=== PATIENT | female | born 1930 | race Hispanic/Latino ===

== ENCOUNTER 2017-08-10 21:42 | Emergency (ER) | payer SELFPAY ==
[~2017-08-10 21:42] MED LIST: Sodium Chloride 0.9% 100 ML BAG ONE
[2017-08-10 22:11] LABS: #Basophils 0.1 thou/uL (0.0-0.2); #Eosinphils 0.4 thou/uL (0.0-0.7); #Lymphocytes 2.5 thou/uL (1.20-3.40); #Monocytes 0.6 thou/uL (0.11-0.59); #Neutrophils 3.3 thou/uL (1.40-6.50); %Basophils 2.2 % (0.0-1.0); %Eosinophils 5.6 % (0.0-10.0); %Lymphocytes 35.9 % (21.0-51.0); %Monocytes 8.8 % (0.0-10.0); %Neutrophils 47.6 % (42.0-75.0); Hemoglobin 14.6 g/dL (12.0-16.0); Mean Corpuscular HGB CONC 31.7 g/dL (32.0-36.0); Mean Corpuscular Hemoglobin 31.3 pg (27.0-31.0); Mean Corpuscular Volume 98.8 fl (81.0-99.0); Mean Platelet Volume 9.4 fL (7.4-10.4); Platelet Count 287 thou/uL (130-400); RBC Distribution Width 11.7 % (11.5-14.5); Red Blood Cell (RBC) Count 4.67 mill/uL (4.20-5.40); White Blood Cell (WBC) Count 6.9 thou/uL (4.8-10.8)
[2017-08-10 22:14] LABS: PTT 27.6 SEC (22.9-36.1); Prothrombin Time 12.8 SEC (12.0-14.7)
[2017-08-10 22:27] LABS: ALT (SGPT) 19 U/L (8-55); AST (SGOT) 21 U/L (5-34); Albumin 3.9 g/dL (3.4-4.8); Alkaline Phosphatase 106 U/L (40-150); Anion Gap 20 mmol/L (10-20); BUN (Urea Nitrogen) 14 mg/dL (9.8-20.1); Bilirubin, Total 0.3 mg/dL (0.2-1.2); Calc. Creatinine Clearance 0 mL/min (70-130); Calcium 9.1 mg/dL (7.8-10.44); Carbon Dioxide 24 mmol/L (23-31); Chloride 102 mmol/L (98-107); Estimated GFR-MDRD 64; Globulin 3.7 g/dL (2.4-3.5); Glucose 223 mg/dL (83-110); Magnesium 1.9 mg/dL (1.6-2.6); Potassium 4.5 mmol/L (3.5-5.1); Protein, Total 7.6 g/dL (6.0-8.3); Sodium 141 mmol/L (136-145)
--- NOTE | 2017-08-10 22:27 | RAD ---
PORTABLE CHEST 08/10/17 PROVIDED CLINICAL HISTORY: Shortness of breath. FINDINGS: Comparison 07/28/17. The cardiac and mediastinal silhouette unchanged in appearance. Vascular calcification involves the a ortic arch, No focal consolidation, pleural fluid, or pneumothorax apparent. IMPRESSION: No evidence for an acute cardiopulmonary process. POS: [facility]
[2017-08-10 22:29] LABS: CKMB 1.4 ng/mL (0-6.6); Troponin I Less than 0.010 ng/mL (< 0.028)
[2017-08-10] MEDS ORDERED: cefTRIAXone\\ROCEPHIN 2 GM VIAL ONE (22:37)
[2017-08-10] MEDS ORDERED: Dexamethasone 10 MG/ML VIAL ONE (22:37)
[2017-08-10] MEDS ORDERED: methylPREDNISolone Sod Succ/PF 125 MG/2 ML VIAL ONE (22:37)
[2017-08-10] MEDS ORDERED: Azithromycin 250 MG TAB ONE (22:37)
[2017-08-10] MEDS ORDERED: Benzonatate 100 MG CAP ONE (22:37)
[2017-08-10 22:47] LABS: Bilirubin Negative (Negative); Blood, Urine Small (Negative); Clarity Clear (Clear); Glucose, Urine (Dipstick) 500 mg/dL (Negative); Leukocyte Negative (Negative); Nitrite Negative (Negative); Protein, Urine (Dipstick) 100 mg/dL (Neg-Trace); Specific Gravity, Urine 1.025 (1.005-1.030)
[2017-08-10 22:47] LABS: CK (CPK) 46 U/L (29-168)
[2017-08-10 22:54] LABS: Bacteria/HPF None Seen HPF (None Seen); RBC/HPF 0-3 HPF (0-3); Squamous Epithelial 0-3 HPF (0-3); WBC/HPF 0-3 HPF (0-3)
== END 2017-08-10 23:34 | disposition home or self-care (01) ==
LOC: MADERS 21:42
DX: J20.9 Acute bronchitis, unspecified (principal); I10 Essential (primary) hypertension; E10.9 Type 1 diabetes mellitus without complications; E78.5 Hyperlipidemia, unspecified; Z79.84 Long term (current) use of oral hypoglycemic drugs; Z79.899 Other long term (current) drug therapy
CPT/HCPCS: 51701; 71010; 80053; 81001; 82553; 83735; 83880; 84484; 85025; 85610; 85730; 87081; 87086; 87430; 93005; 94640; 94760; 96365; 96375; A4353; J0696; J1100; J2930; J7050; J7620

== ENCOUNTER 2017-11-07 19:39 | Emergency (ER) | payer SELFPAY ==
[2017-11-07] MEDS ORDERED: MORPHINE 10 MG/ML SYRINGE ONE (19:50)
[2017-11-07] MEDS ORDERED: CEFAZOLIN 1 GM VIAL ONE (20:32)
--- NOTE | 2017-11-07 20:37 | RAD ---
THREE VIEWS LEFT WRIST: 11/07/17 INDICATION: Fall with left wrist pain. FINDINGS: There is a comminuted intra-articular distal radius fracture with dorsal radial displacement of the d istal fracture fragment one half shaft width. There is additional comminuted fracture involving the d istal ulnar metaphyseal region and ulnar styloid process base. No additional fracture is evident. The re is soft tissue swelling seen surrounding the fracture site. 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 IMPRESSION: Comminuted distal left wrist fracture. POS: [facility]
== END 2017-11-07 21:40 | disposition short-term general hospital (02) ==
LOC: MADERS 19:39
DX: S52.572B Other intraarticular fracture of lower end of left radius, initial encounter for open fracture type I or II (principal); S52.612B Displaced fracture of left ulna styloid process, initial encounter for open fracture type I or II; I10 Essential (primary) hypertension; E11.9 Type 2 diabetes mellitus without complications; E78.5 Hyperlipidemia, unspecified; F32.9 Major depressive disorder, single episode, unspecified; Z79.84 Long term (current) use of oral hypoglycemic drugs; Z79.899 Other long term (current) drug therapy; W18.30XA Fall on same level, unspecified, initial encounter
CPT/HCPCS: 29125; 96365; 96375; J0690; J2001; J2270; J7050

== ENCOUNTER 2018-09-03 14:04 | Emergency (ER) | payer SELFPAY ==
[~2018-09-03 14:04] MED LIST changes: +Sodium Chloride 0.9% 1,000 ML BAG ONE; -Sodium Chloride 0.9% 100 ML BAG ONE
--- NOTE | 2018-09-03 14:47 | RAD ---
FRONTAL RADIOGRAPH CHEST PORTABLE UPRIGHT: Date: 09-03-18 Comparison: 11-07-17 History: Chest pain. FINDINGS: Shallow inspiration and portable technique limit detailed assessment of the lung bases. There is athe rosclerotic calcification of the aortic arch. There is no pneumothorax, pleural fluid, focal consolid ation, or alveolar edema. IMPRESSION: No acute findings. Shallow inspiration and portable technique limit detailed assessment of the lung b ases. POS: [facility]
[2018-09-03 14:56] LABS: #Basophils 0.1 thou/uL (0.0-0.2); #Eosinphils 0.2 thou/uL (0.0-0.7); #Lymphocytes 2.3 thou/uL (1.20-3.40); #Monocytes 0.8 thou/uL (0.11-0.59); #Neutrophils 5.7 thou/uL (1.40-6.50); %Basophils 1.5 % (0.0-1.0); %Eosinophils 2.7 % (0.0-10.0); %Lymphocytes 24.9 % (21.0-51.0); %Monocytes 8.6 % (0.0-10.0); %Neutrophils 62.3 % (42.0-75.0); Hemoglobin 13.7 g/dL (12.0-16.0); Mean Corpuscular HGB CONC 32.6 g/dL (32.0-36.0); Mean Corpuscular Hemoglobin 31.9 pg (27.0-31.0); Mean Corpuscular Volume 97.9 fL (78.0-98.0); Mean Platelet Volume 9.9 fL (7.4-10.4); Platelet Count 239 thou/uL (130-400); RBC Distribution Width 11.9 % (11.5-14.5); White Blood Cell (WBC) Count 9.2 thou/uL (4.8-10.8)
[2018-09-03 15:10] LABS: ALT (SGPT) 14 U/L (8-55); AST (SGOT) 19 U/L (5-34); Albumin 3.8 g/dL (3.4-4.8); Alkaline Phosphatase 71 U/L (40-150); Anion Gap 12 mmol/L (10-20); BUN (Urea Nitrogen) 16 mg/dL (9.8-20.1); Bilirubin, Total 0.5 mg/dL (0.2-1.2); Calc. Creatinine Clearance 0 mL/min (70-130); Calcium 9.6 mg/dL (7.8-10.44); Carbon Dioxide 31 mmol/L (23-31); Chloride 104 mmol/L (98-107); Estimated GFR-MDRD 72; Glucose 99 mg/dL (83-110); Potassium 3.9 mmol/L (3.5-5.1); Protein, Total 6.8 g/dL (6.0-8.3); Sodium 143 mmol/L (136-145)
== END 2018-09-03 16:01 | disposition home or self-care (01) ==
LOC: MADERS 14:04
DX: E86.0 Dehydration (principal); I10 Essential (primary) hypertension; E10.9 Type 1 diabetes mellitus without complications; E78.5 Hyperlipidemia, unspecified; F32.9 Major depressive disorder, single episode, unspecified; Z79.899 Other long term (current) drug therapy; Z79.84 Long term (current) use of oral hypoglycemic drugs
CPT/HCPCS: 36415; 71045; 80053; 84484; 85025; 93005; 96360; J7050